=== PATIENT | female | born 1950 | race Caucasian/White ===

== ENCOUNTER 2017-03-01 17:41 | Inpatient (IN) | payer OTHER ==
[~2017-03-01] VITALS: Ht 165.1 cm; Wt 56.6 kg
[2017-03-01 18:27] LABS: HEMATOCRIT 37.2 % (36.0-46.0); MCH 31.9 PG (29.0-34.0); MCV 99.7 FL (83-99); MEAN PLAT.VOLUME 10.6 uM^3 (9.5-12.4); PLATELET COUNT 247 K/uL (156-360); RBC DIS.WIDTH-CV 11.7 % (11.8-14.6); RBC DIS.WIDTH-SD 43.1 % (39-53); RED BLOOD COUNT 3.73 M/uL (3.80-5.20); WHITE BLOOD COUNT 7.5 K/uL (4.1-10.2)
[2017-03-01 18:42] LABS: CHLORIDE 102 mEq/L (99-109); POTASSIUM 4.3 mEq/L (3.7-5.4); SODIUM 139 mEq/L (136-147)
[2017-03-01 18:44] LABS: GLUCOSE 91 mg/dL (70-99)
[2017-03-01 18:45] LABS: ANION GAP 7 MEQ/L (2-14)
[2017-03-01 18:48] LABS: GFR ESTIMATE (CALCULATED) > 59 mL/min/; UREA NITROGEN (BUN) 11 mg/dL (9-23)
[2017-03-01 18:52] LABS: TROP-I INTERPRETATION NEGATIVE; TROPONIN-I < 0.01 ng/mL (0.0-0.30)
[2017-03-01 19:38] LABS: ADD MIUA? YES; BILIRUBIN NEGATIVE; BLOOD MODERATE; COLOR YELLOW ((YELLOW)); GLUCOSE (STRIP) NEGATIVE; KETONES NEGATIVE; LEUKOCYTES LARGE; NITRITE NEGATIVE; PROTEIN (STRIP) NEGATIVE; SPECIFIC GRAVITY 1.012 (1.000-1.030); UROBILINOGEN 0.2 MG/DL (0.2-1.0)
[2017-03-01 20:12] LABS: EPITHELIAL CELLS 1+ /HPF; WHITE BLOOD CELLS 40-50 /HPF (0-5)
[2017-03-01 20:13] LABS: AMORPHOUS URATES CRYSTALS 2+; BACTERIA 1+ /HPF; CASTS NONE SEEN /LPF; CRYSTALS PRESENT; MUCUS TRACE /LPF; UCUL ADDED? YES
[2017-03-01] MEDS ORDERED: DESYREL100 MG PO (21:37)
[2017-03-01] MEDS ORDERED: ERGOCALCIF50000 UNIT PO (21:38)
[2017-03-01] MEDS ORDERED: UCERIS9 MG PO (21:38)
[2017-03-01] MEDS ORDERED: MYSOLINE250 MG PO (21:38)
[2017-03-01] MEDS ORDERED: ASACOL HD800 MG PO (21:39)
[2017-03-01] MEDS ORDERED: VENTOLIN HFA18 GM IH (21:39)
[2017-03-01] MEDS ORDERED: ZOLOFT100 MG PO (21:39)
[2017-03-01] MEDS ORDERED: B-COMPLEX-VITA1 EACH PO (21:40)
[2017-03-01] MEDS ORDERED: ANORO ELLIPTA1 EACH IH (21:40)
[2017-03-01] MEDS ORDERED: VITAMIN B122500 MCG PO (21:40)
[2017-03-01] MEDS ORDERED: PROVENTIL,2.5 MG/3 M IH (21:40)
[2017-03-01] MEDS ORDERED: FISH OIL 1,0001 EAC7 PO (21:41)
[2017-03-01] MEDS ORDERED: COLD-FLU RELIE295 ML PO (21:42)
[2017-03-01] MEDS ORDERED: DAYTIME COLD &237 ML PO (21:42)
[2017-03-01 22:24] LABS: BASE EXCESS 6.7 mEq/L (-3 to +3); BICARBONATE 33.5 mEq/L (22-26); CARBOXY HGB 1.8 % (0-5); COMMENTS - BLOOD GASES C+; DEVICE NC; METHEMOGLOBIN 1.2 % (0-1.5); PCO2 58 mm Hg (35-45); PO2 68 mm Hg (80-100); SITE LR; pH 7.37 (7.35-7.45)
[2017-03-01 22:25] LABS: TOTAL RESP RATE 22 resp/min
[2017-03-02] VITALS (7 sets, daily range): BP systolic 110–141; BP diastolic 55–78
[2017-03-02 02:15] LABS: TROP-I INTERPRETATION NEGATIVE; TROPONIN-I 0.02 ng/mL (0.0-0.30)
[2017-03-02 06:58] LABS: HEMATOCRIT 37.5 % (36.0-46.0); MCH 32.4 PG (29.0-34.0); MCHC 32.3 G/DL (30.0-36.0); MCV 100.5 FL (83-99); MEAN PLAT.VOLUME 10.8 uM^3 (9.5-12.4); PLATELET COUNT 252 K/uL (156-360); RBC DIS.WIDTH-CV 11.9 % (11.8-14.6); RBC DIS.WIDTH-SD 44.2 % (39-53); RED BLOOD COUNT 3.73 M/uL (3.80-5.20)
[2017-03-02 07:20] LABS: TROP-I INTERPRETATION NEGATIVE; TROPONIN-I 0.03 ng/mL (0.0-0.30)
[2017-03-02 07:22] LABS: ANION GAP 8 MEQ/L (2-14); CHLORIDE 102 MEQ/L (99-109); GFR ESTIMATE (CALCULATED) > 59 mL/min/; GLUCOSE 108 mg/dL (70-99); POTASSIUM 4.7 MEQ/L (3.7-5.4); SAMPLE HEMOLYSIS CHECK 0; SAMPLE ICTERIC CHECK 0; SAMPLE LIPEMIA CHECK 0; SODIUM 142 MEQ/L (136-147); UREA NITROGEN (BUN) 12 mg/dL (9-23)
[2017-03-03 03:45] VITALS: BP 116/61
[2017-03-03 07:10] VITALS: BP 117/56
[2017-03-03 14:53] VITALS: BP 120/57
[2017-03-03 23:21] VITALS: BP 131/75
[2017-03-04 08:46] VITALS: BP 142/68
[2017-03-04 15:42] VITALS: BP 167/78
[2017-03-05 00:07] VITALS: BP 121/59
[2017-03-05 06:50] LABS: EOSINOPHIL (%) 0 % (0-5); HEMATOCRIT 32.8 % (36.0-46.0); IMMATURE GRANULOCYTE (%) 1.5 % (0.0-0.7); IMMATURE GRANULOCYTE COUNT 0.1 K/uL; INSTRUMENT ABS NEUTROPHIL CT 5.1 K/uL; LYMPHOCYTE COUNT 1.1 K/uL (1.0-2.8); MCH 31.4 PG (29.0-34.0); MCHC 31.7 G/DL (30.0-36.0); MCV 99.1 FL (83-99); MONOCYTE (%) 7.3 % (3-12); MONOCYTE COUNT 0.5 K/uL (0-0.8); NEUTROPHIL (%) 75.2 % (45-76); NEUTROPHIL COUNT 5.1 K/uL (1.8-6.4); PLATELET COUNT 213 K/uL (156-360); RBC DIS.WIDTH-CV 12.2 % (11.8-14.6); RBC DIS.WIDTH-SD 44.6 % (39-53); RED BLOOD COUNT 3.31 M/uL (3.80-5.20); WHITE BLOOD COUNT 6.7 K/uL (4.1-10.2)
[2017-03-05 07:18] LABS: ANION GAP 6 MEQ/L (2-14); CHLORIDE 104 MEQ/L (99-109); GFR ESTIMATE (CALCULATED) > 59 mL/min/; GLUCOSE 100 mg/dL (70-99); MAGNESIUM 2.1 mg/dl (1.3-2.7); POTASSIUM 4.5 MEQ/L (3.7-5.4); SAMPLE HEMOLYSIS CHECK 0; SAMPLE ICTERIC CHECK 0; SAMPLE LIPEMIA CHECK 0; SODIUM 140 MEQ/L (136-147); UREA NITROGEN (BUN) 16 mg/dL (9-23)
[2017-03-05 08:27] VITALS: BP 128/66
[2017-03-05 11:21] VITALS: BP 131/69
[2017-03-05 15:35] VITALS: BP 170/83
[2017-03-05 21:26] VITALS: BP 150/80
[2017-03-05 23:23] VITALS: BP 110/59
[2017-03-06 07:05] VITALS: BP 144/64
[2017-03-06] MEDS ORDERED: PREDNISONE10 MG PO (14:48)
[2017-03-06] MEDS ORDERED: BUPROPION HCL150 M2 PO (14:48)
== END 2017-03-06 16:27 | disposition home or self-care (01) | DRG 190 ==
LOC: EME 17:41 → ENRESERV 22:00 → 2EAST 22:00 → EDOF 22:00 → ENRESERV 22:11 → 2EAST 23:09
PROVIDERS: Emergency Medicine; Hospitalist; Internal Medicine
DX: J44.1 Chronic obstructive pulmonary disease with (acute) exacerbation (principal); J96.21 Acute and chronic respiratory failure with hypoxia; J18.9 Pneumonia, unspecified organism; F33.9 Major depressive disorder, recurrent, unspecified; N39.0 Urinary tract infection, site not specified; K51.90 Ulcerative colitis, unspecified, without complications; J44.0 Chronic obstructive pulmonary disease with (acute) lower respiratory infection; F17.210 Nicotine dependence, cigarettes, uncomplicated; E78.5 Hyperlipidemia, unspecified; F41.0 Panic disorder [episodic paroxysmal anxiety]; G25.0 Essential tremor; B18.2 Chronic viral hepatitis C; R91.1 Solitary pulmonary nodule; Z99.81 Dependence on supplemental oxygen; Z85.41 Personal history of malignant neoplasm of cervix uteri; Z82.5 Family history of asthma and other chronic lower respiratory diseases; Z83.3 Family history of diabetes mellitus; Z81.1 Family history of alcohol abuse and dependence
CPT/HCPCS: 36600; 71010; 71275; 80048; 81003; 82803; 83605; 83735; 84484; 85025; 85027; 87040; 87070; 87086 GA; 87205; 93005; 94640; 94640 76; 94799; 97530 GO; 97530 GP; 99202; 99281; 99285; J0696; J1650; J2930; J7050

== ENCOUNTER 2017-06-17 19:07 | Emergency (ER) | payer OTHER ==
[~2017-06-17] VITALS: Ht 154.9 cm; Wt 50.9 kg
[~2017-06-17 19:07] MED LIST: ANORO ELLIPTA1 EACH IH; ASACOL HD800 MG PO; B-COMPLEX-VITA1 EACH PO; BUPROPION HCL150 M2 PO; COLD-FLU RELIE295 ML PO; DAYTIME COLD &237 ML PO; DESYREL100 MG PO; ERGOCALCIF50000 UNIT PO; FISH OIL 1,0001 EAC7 PO; MYSOLINE250 MG PO; PREDNISONE10 MG PO; PROVENTIL,2.5 MG/3 M IH; UCERIS9 MG PO; VENTOLIN HFA18 GM IH; VITAMIN B122500 MCG PO; ZOLOFT100 MG PO
[2017-06-17 22:16] VITALS: BP 133/64
== END 2017-06-17 22:16 | disposition home or self-care (01) ==
LOC: EXP 19:07 → EME 19:07 → EXP 22:16
DX: J44.9 Chronic obstructive pulmonary disease, unspecified (principal); R09.02 Hypoxemia; Z99.81 Dependence on supplemental oxygen; Z87.891 Personal history of nicotine dependence; F41.9 Anxiety disorder, unspecified
CPT/HCPCS: 99281; 99284

== ENCOUNTER 2017-08-12 16:03 | Emergency (ER) | payer OTHER ==
[~2017-08-12] VITALS: Ht 160 cm; Wt 53.6 kg
[2017-08-12] MEDS ORDERED: MOTRIN600 MG PO (18:27)
[2017-08-12] MEDS ORDERED: ULTRACET1 TABLET PO (18:27)
[2017-08-12 18:58] VITALS: BP 151/75
== END 2017-08-12 19:02 | disposition home or self-care (01) ==
LOC: EME 16:03
DX: S09.90XA Unspecified injury of head, initial encounter (principal); S92.352A Displaced fracture of fifth metatarsal bone, left foot, initial encounter for closed fracture; S93.402A Sprain of unspecified ligament of left ankle, initial encounter; W10.9XXA Fall (on) (from) unspecified stairs and steps, initial encounter; J44.9 Chronic obstructive pulmonary disease, unspecified; Z99.81 Dependence on supplemental oxygen; Z87.891 Personal history of nicotine dependence
CPT/HCPCS: 73610; 73630